=== PATIENT | female | born 1970 | race Caucasian/White ===

== ENCOUNTER 2022-08-18 08:48 | Outpatient (CLI) | payer BC, SELFPAY ==
[2022-08-18 14:58] LABS: Chloride* 105 mmol/L (96-114); Potassium* 4.5 mmol/L (3.6-5.1); Sodium* 136 mmol/L (135-149)
[2022-08-18 15:01] LABS: Blood Urea Nitrogen* 17 mg/dL (7-30); Carbon Dioxide* 23 mmol/L (20-32); Cholesterol* 241 mg/dL (90-199); Creatinine* 0.7 mg/dL (0.5-1.5); Estimated Glomerular Filt Rate 105 ml/min; Glucose* 97 mg/dL (60-115); Triglycerides* 169 mg/dL (40-149)
[2022-08-18 15:02] LABS: Calcium* 9.3 mg/dL (8.4-10.6); HDL Cholesterol* 50 mg/dL (>=50); LDL Cholesterol Calculated 157 mg/dL (<100)
== END 2022-08-18 08:49 | disposition home or self-care (01) ==
PROVIDERS: Visit Provider Physician Assistant Medical
DX: Z01.419 Encounter for gynecological examination (general) (routine) without abnormal findings (principal); E78.5 Hyperlipidemia, unspecified; E78.2 Mixed hyperlipidemia
CPT/HCPCS: 80048; 80061

== ENCOUNTER 2022-10-05 11:10 | Outpatient (CLI) | payer BC, SELFPAY ==
--- NOTE | 2022-10-05 11:30 | CRLHL7_ITS ---
For Patients: As a result of the Century Cures Act, medical imaging exams and procedure reports are released immediately into your electronic medical record. You may view this report before your referring provider. If you have questions, please contact your health care provider. BILATERAL SCREENING MAMMOGRAM WITH COMPUTER-AIDED DETECTION AND TOMOSYNTHESIS TECHNIQUE: CC and MLO views were obtained. These mammographic images have been obtained using full-field digital technique. These mammographic images were interpreted with the benefit of computer-aided detection. Breast Tomosynthesis was used in this interpretation. COMPARISON FILM: 09/20/21, 08/31/20, 08/22/19. FINDINGS: There are scattered areas of fibroglandular density IMPRESSION: There is no radiographic evidence for malignancy. ASSESSMENT: BI-RADS Category 1: Negative RECOMMENDATION: Routine screening mammogram in 1 year. A lay language report of this examination will be provided to the patient. Rene Brunson M.D. Diagnostic Radiologist [email or web address] Transcribed: 4:28 pm DW/Dictated by: Rene Brunson MD @ 10/05/2022 12:15:00 PM (Electronically Signed)
== END 2022-10-05 11:11 | disposition home or self-care (01) ==
LOC: MAMMO 11:11
PROVIDERS: Visit Provider Physician Assistant Medical
DX: Z12.31 Encounter for screening mammogram for malignant neoplasm of breast (principal)
CPT/HCPCS: 77063; 77067

== ENCOUNTER 2022-12-19 11:12 | Outpatient (CLI) | payer BC, SELFPAY | END 2022-12-19 11:13 | disposition home or self-care (01) | LOC: OP CLINIC 11:12 | PROVIDERS: PCP Physician Assistant Medical; Visit Provider Surgery | DX: Z12.11 Encounter for screening for malignant neoplasm of colon (principal); K63.5 Polyp of colon; Z83.71 Family history of colonic polyps | CPT/HCPCS: 45380; 45385; 88305; 99153; J2250; J3010 ==

== ENCOUNTER 2023-01-25 07:29 | Outpatient (CLI) | payer BC, SELFPAY | END 2023-01-25 07:30 | disposition home or self-care (01) | LOC: NFLDREF 01-26 03:01 | PROVIDERS: PCP Physician Assistant Medical; Referring Provider Physician Assistant Medical; Visit Provider Physician Assistant Medical | DX: E78.2 Mixed hyperlipidemia (principal) | CPT/HCPCS: 80061 ==

== ENCOUNTER 2023-11-10 11:06 | Outpatient (CLI) | payer BC, SELFPAY ==
--- NOTE | 2023-11-10 11:30 | CRLHL7_ITS ---
For Patients: As a result of the Cures Act, medical imaging exams and procedure reports are released immediately into your electronic medical record. You may view this report before your referring provider. If you have questions, please contact your health care provider. BILATERAL SCREENING MAMMOGRAM WITH COMPUTER-AIDED DETECTION AND TOMOSYNTHESIS TECHNIQUE: CC and MLO views were obtained. These mammographic images have been obtained using full-field digital technique. These mammographic images were interpreted with the benefit of computer-aided detection. Breast Tomosynthesis was used in this interpretation. COMPARISON FILM: 10/05/22, 09/20/21, 08/31/20. FINDINGS: There are scattered areas of fibroglandular density IMPRESSION: There is no radiographic evidence for malignancy. ASSESSMENT: BI-RADS Category 2: Benign RECOMMENDATION: Routine screening mammogram in 1 year. A lay language report of this examination will be provided to the patient. Rene Brunson M.D. Diagnostic Radiologist [email or web address] Transcribed: 4:36 p.mRupali chaves/Dictated by: Rene Brunson MD @ 11/15/2023 12:12:00 PM (Electronically Signed)
== END 2023-11-10 11:07 | disposition home or self-care (01) ==
LOC: MAMMO 11:07
PROVIDERS: PCP Physician Assistant Medical; Visit Provider Physician Assistant Medical
DX: Z12.31 Encounter for screening mammogram for malignant neoplasm of breast (principal)
CPT/HCPCS: 77063; 77067

== ENCOUNTER 2024-11-27 09:56 | Outpatient (CLI) | payer BC, SELFPAY | END 2024-11-27 09:57 | disposition home or self-care (01) | PROVIDERS: PCP Physician Assistant Medical; Visit Provider Physician Assistant Medical | DX: Z12.31 Encounter for screening mammogram for malignant neoplasm of breast (principal) | CPT/HCPCS: 77063; 77067 ==